=== PATIENT | male | born 1985 | race Caucasian/White ===

== ENCOUNTER → 2020-09-17 | Outpatient (CLI) | payer BC, OTHER ==
--- NOTE | 2020-09-17 11:31 | MRI ---
Study: MRI of the Left Knee. Indication: pain in left knee Technique: Multiplanar, multi sequence MRI of the left knee was obtained without intravenous contrast. Comparison: None. Findings: On the equal opportunity officer radiographs is a questionable 2.5 cm T1 hypointense focus in the distal femoral diaphysis medially button included in the [id number] on the remaining images. ACL, PCL, and lateral collateral ligament complex intact. MCL is lax and bowed indicating sequela of a prior MCL sprain. No acute tear. Degenerative signal changes posterior horn and body medial meniscus and lateral meniscus. No tear defect. Areas of grade 2-3 chondrosis of the medial compartment grade 2 changes lateral compartment. Tendinosis and mild interstitial fissuring quadriceps tendon insertion. Patellar tendon intact. Patella normally located. 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 In addition, grade 3/4 chondral fissuring and mild delamination at the midline femoral trochlea superiorly. Moderate size knee effusion. No acute fracture. Impression: Scattered degenerative signal changes medial meniscus and lateral meniscus without tear. Prior MCL sprain. Grade 2-3 chondrosis medial compartment with grade 2 changes lateral compartment. 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 Moderate size knee effusion. Suspected lesion distal femoral diaphysis medially, likely nonaggressive but ultimately indeterminate. Correlation with dedicated radiographs of the femur recommended. Electronically signed by: Sivakumar Stone MD 09/17/2020 11:29 AM [employer] [facility]
--- NOTE | 2020-09-17 11:35 | US ---
EXAM DESCRIPTION: Soft Tissue,Extremity CLINICAL HISTORY: 35 years Male, pain in right ankle COMPARISON: None. FINDINGS: Clinical history is lump on the medial right ankle. Sono was performed in area of palpable concern. Mild soft tissue thickening. No definite mass. A normal tendon passes through the area of interest. Normal surface of the bone. The hypoechoic structure is measured which is of uncertain nature or significance 8 mm. Normal veins with normal subcutaneous fatty tissue and no lipoma. The hypoechoic area consistent with a fluid collection could be within the soft tissues or in a bursa. This measures approximately 3 mm in thickness and 4.4 cm in length. IMPRESSION: Small fluid collection along the medial aspect of the right ankle. Electronically signed by: Elijah Mijares MD 09/17/2020 11:33 AM [facility]
== END ==
LOC: MRI 10:00
PROVIDERS: ATTEND Family Medicine
DX: M23.301 Other meniscus derangements, unspecified lateral meniscus, left knee (principal); M23.304 Other meniscus derangements, unspecified medial meniscus, left knee; M25.462 Effusion, left knee; M94.262 Chondromalacia, left knee; M89.9 Disorder of bone, unspecified; R22.41 Localized swelling, mass and lump, right lower limb